=== PATIENT | female | born 2000 | race Caucasian/White ===

== ENCOUNTER 2024-01-16 17:10 | Emergency (ER) | payer OTHER, SELFPAY ==
--- NOTE | 2024-01-16 17:15 | ED_ITS ---
HPI - General Adult General Chief complaint: Urogenital-Female Stated complaint: Possible UTI Time Seen by Provider: 01/16/24 17:15 Source: patient Mode of arrival: ambulatory Limitations: no limitations History of Present Illness HPI narrative: 24-year-old female patient presents to the [facility] with complaints of urinary symptoms that started yesterday. Patient states she has had pain and pressure when she urinates. Denies any low back pain. Denies any abdominal pain. Denies any fevers, body aches or chills. Denies any nausea vomiting or diarrhea. Denies . Related Data Allergies Allergy/AdvReac Type Severity Reaction Status Date / Time povidone-iodine Allergy Intermediate rash Verified 01/16/24 17:32 [From Betadine] Review of Systems Review of Systems: CONSTITUTIONAL: Denies fever, chills, or sweats. EYES: Denies visual changes, redness, or discharge. ENT: Denies rhinorrhea, congestion, sore throat, or otalgia. CARDIOVASCULAR: Denies chest pain, palpitations, or edema. RESPIRATORY: Denies cough or dyspnea. GASTROINTESTINAL: Denies abdominal pain, nausea, vomiting, or diarrhea. GENITOURINARY: Positive dysuria denies hematuria. SKIN: Denies rash or itching. MUSCULOSKELETAL: Denies back pain, joint pain, or myalgia. NEUROLOGIC: Denies headache, numbness, or weakness. PSYCHIATRIC: Denies anxiety or depression. [facility] Past Medical History Medical History Anxiety disorder Surgical History Surgical History History of appendectomy Family History Family History Other Diabetes mellitus Social History Social History Smoking status: Never smoker Alcohol intake: current Alcohol use details: socially Substance use: never Do You Feel Safe in your Home?: Yes Lack of Transportation: No Lack of Food: Never True Current Housing: I Have Housing Concerned About Future Housing: No Difficulty Paying Gas/Electric Bills: No Difficulty Paying for Meds: No Currently Unemployed: No Education: Bachelor's Degree Difficulty w/ Childcare or Family Care: No Living arrangements: with family Occupation/Education: occupation Additional occupation/education comments: [employer] Gender identity (if verbalized by the patient): Female Sexual Orientation (if Verbalized by the Patient): Straight or Heterosexual Comments At the time of my signature I agree with nursing past medical history, surgical, social, and family history. There is no relevant family history pertinent to the presenting complaint. Exam Narrative: GENERAL: Well-appearing, well-nourished, and in no acute distress. HEAD: Normocephalic, atraumatic. EYES: PERRLA and EOMI. ENT: Nares clear, no rhinorrhea or epistaxis. Mucous membranes moist. NECK: Supple. No lymphadenopathy CHEST: Clear to auscultation. No respiratory distress. HEART: Regular rate and rhythm. No murmur heard. Normal peripheral pulses. ABDOMEN: Soft, nontender, nondistended, normal active bowel sounds. no CVA tenderness on percussion EXTREMITIES: Normal range of motion. No edema. SKIN: Warm, dry, no rash. NEURO: No focal deficits. Alert and oriented x3. Course Course Level of Care: Express Care Visit Vital Signs Vital signs: Vital Signs Temperature 36.8 C 01/16/24 17:24 Pulse Rate 80 01/16/24 17:24 Respiratory Rate 18 01/16/24 17:24 Blood Pressure 131/78 01/16/24 17:24 Pulse Oximetry 99 01/16/24 17:24 Oxygen Delivery Room Air 01/16/24 17:24 Temperature 36.8 C 01/16/24 17:24 Pulse Rate 80 01/16/24 17:24 Respiratory Rate 18 01/16/24 17:24 Blood Pressure 131/78 01/16/24 17:24 Pulse Oximetry 99 01/16/24 17:24 Oxygen Delivery Room Air 01/16/24 17:24 Vital signs reviewed. Medical Decision Making MDM Narrative Medical decision making narrative: plan care patient is discharged home with oral antibiotics for possible urinary tract infection. Discussed with patient that if the culture shows that she needs a different type of antibiotic we will call her and change at that time otherwise is very important that she complete the entire course of antibiotics. Patient verbalized understanding denies any other questions or concerns at this time. Differential Diagnosis Differential Diagnosis: Differential diagnosis: Uncomplicated lower UTI, uncomplicated UTI, pyelonephritis Vital Signs Vital Signs: Vital Signs Temperature 36.8 C 01/16/24 17:24 Pulse Rate 80 01/16/24 17:24 Respiratory Rate 18 01/16/24 17:24 Blood Pressure 131/78 01/16/24 17:24 Pulse Oximetry 99 01/16/24 17:24 Oxygen Delivery Room Air 01/16/24 17:24 Temperature 36.8 C 01/16/24 17:24 Pulse Rate 80 01/16/24 17:24 Respiratory Rate 18 01/16/24 17:24 Blood Pressure 131/78 01/16/24 17:24 Pulse Oximetry 99 01/16/24 17:24 Oxygen Delivery Room Air 01/16/24 17:24 Lab Data Labs: Lab Results 01/16/24 Range/Units 17:32 POC Urine Color Yellow POC Urine Clarity Cloudy POC Urine pH 7.0 POC Ur Specif [place] 1.020 POC Urine Protein Negative (Negative) POC Ur Glucose (UA) Negative (Negative) POC Urine Ketones Negative (Negative) POC Urine Blood 1+ (Negative) POC Urine Nitrite Negative (Negative) POC Urine Bilirubin Negative (Negative) POC Urine Urobilinogen 0.2 POC U Leukocyte Esteras 2+ (Negative) POC Urine HCG, Qual Negative (Negative) Critical Care Time Critical Care Time Critical Care Time: No Discharge Plan Discharge Clinical Impression: Urinary tract infection Qualifiers: Urinary tract infection type: acute cystitis Hematuria presence: with hematuria Qualified Code(s): N30.01 - Acute cystitis with hematuria Patient Disposition: Home, Self-Care Condition: Stable Instructions: Antibiotic Form, Urinary Tract Infection in Women (ED) Additional Instructions: We will send a urine culture off to the lab; if the culture identifies an organism that the prescribed antibiotic will not treat, you will receive a phone call from an urgent care staff member and an appropriate antibiotic will be prescribed. -Your symptoms should begin to improve within a day of starting antibiotics. But you should finish all the antibiotic pills you get. Otherwise your infection might come back. -Also recommend: drink more fluid. It might help flush out germs, and it does no harm -Tylenol/ibuprofen prn for pain or fever -Follow-up with your primary care provider for urine recheck or seek ER visit if condition worsens with high fever, nausea, vomiting and severe back pain. Prescriptions: New cephalexin 500 mg capsule 500 mg PO Q12H 5 Days Qty: 10 0RF No Action norgestimate-ethinyl estradiol [Estarylla] 0.25-35 mg-mcg tablet 1 tablet PO Q24H Qty: 112 4RF Rx Instructions: take 1 tablet every 24 hours in a continuous manner to skip cycles Follow-up/Referrals: Yemi,Francesca Spangler APRN [Primary Care Provider] - Time of Disposition: 17:39
[2024-01-16 17:24] VITALS: BP 131/78; PULSE 80; RESP 18; TEMP 36.8; O2SAT 99
[2024-01-16 17:33] LABS: BEDSIDEPREGUCG Negative (Negative); EDUAAPPEAR Cloudy; EDUABILI Negative (Negative); EDUABLOOD 1+ (Negative); EDUACOLOR1 Yellow; EDUAGLUCOSE Negative (Negative); EDUAKETONE Negative (Negative); EDUALEUKO 2+ (Negative); EDUANITRATE Negative (Negative); EDUAPROTEIN Negative (Negative); EDUAUROBILI 0.2
== END 2024-01-16 17:42 | disposition home or self-care (01) ==
PROVIDERS: Emergency Provider Nurse Practitioner Family; PCP Nurse Practitioner Family
DX: N30.01 Acute cystitis with hematuria (principal); B96.20 Unspecified Escherichia coli [E. coli] as the cause of diseases classified elsewhere
CPT/HCPCS: 81003; 81025; 87086; 87186; 99213; G0463